=== PATIENT | female | born 1960 | race Caucasian/White ===

== ENCOUNTER 2017-03-02 16:41 | Emergency (ER) | payer MEDICAID, OTHER ==
[~2017-03-02] VITALS: Ht 157.5 cm; Wt 52.2 kg
[~2017-03-02 16:41] MED LIST: DIPHTAB95; LORA2TAB89; METO-462; VALS160T51
[2017-03-02] MEDS ORDERED: SODIUM CHLORIDE 0.9% 1,000 ML IV ONE (16:53)
[2017-03-02] MEDS ORDERED: cloNIDine HCL 0.1 MG TAB PO ONE (17:00)
[2017-03-02 17:34] LABS: Basophils # (auto) 0.1 uL; Basophils % (auto) 0.7 % (0.0-2.0); CONDITION Y; Eosinophils # (auto) 0.3 uL; Hematocrit 39.7 % (36.0-46.0); Hemoglobin 13.2 g/dL (12.2-16.2); Lymphocytes # (auto) 2.1 uL; Lymphocytes % (auto) 23.4 % (10.0-50.0); Mean Corpuscular Hemoglobin 30.6 pg (28.0-32.0); Mean Corpuscular Hgb Conc. 33.1 g/dL (32.0-36.0); Mean Corpuscular Volume 92.3 fL (80.0-100.0); Mean Platelet Volume 8.2 fL (7.4-10.4); Monocytes # (auto) 1.1 uL; Monocytes % (auto) 12.5 % (0.0-12.0); Neutrophils # (auto) 5.5 uL; Neutrophils % (auto) 60.4 % (37.0-80.0); Platelet Count (auto) 284 10^3/uL (140-450); Red Cell Distribution Width 14.1 % (11.6-16.0); White Blood Cell 9.1 10^3/uL (4.4-10.8)
[2017-03-02 18:00] LABS: Albumin 3.8 g/dL (3.4-5.0); BUN/Creatinine Ratio 17.2; Calcium 8.7 mg/dL (8.5-10.1); Potassium 4.1 mmol/L (3.5-5.1)
[2017-03-02 18:03] LABS: Bilirubin, Total 0.4 mg/dL (0.2-1.0)
[2017-03-02 18:17] VITALS: BP 171/80
[2017-03-02 18:23] LABS: Urine RBC None Seen /hpf (0 - 4)
[2017-03-02] MEDS ORDERED: HYDROcodone-ACET 10/325MG TAB PO ONE (18:30)
[2017-03-02 18:38] LABS: Urine Bilirubin Negative (Negative); Urine Blood Negative /uL (Negative); Urine Color Yellow (Yellow); Urine Glucose Normal (Normal); Urine Ketone Negative (Negative); Urine Nitrite Negative (Negative); Urine Squamous Epithelial Cell FEW /hpf (<5); Urine Urobilinogen Normal (Negative)
== END 2017-03-02 19:22 | disposition home or self-care (01) ==
LOC: EDBD 16:41 → ER 16:49
DX: I16.0 Hypertensive urgency (principal); M25.561 Pain in right knee; I10 Essential (primary) hypertension; Z86.73 Personal history of transient ischemic attack (TIA), and cerebral infarction without residual deficits; I25.10 Atherosclerotic heart disease of native coronary artery without angina pectoris; F43.10 Post-traumatic stress disorder, unspecified; I25.2 Old myocardial infarction; Z85.43 Personal history of malignant neoplasm of ovary; F17.210 Nicotine dependence, cigarettes, uncomplicated
CPT/HCPCS: 36415; 80053; 81001; 85025; 93005; 94761; 96360; 99285; J7030

== ENCOUNTER 2018-01-09 09:30 | Inpatient (IN) | payer MEDICAID ==
[~2018-01-09] VITALS: Ht 157.5 cm; Wt 61.8 kg
[2018-01-09 10:09] LABS: Basophils # (auto) 0 uL; Hemoglobin 13.6 g/dL (12.2-16.2); Mean Corpuscular Hemoglobin 29.9 pg (28.0-32.0); Mean Corpuscular Hgb Conc. 33.9 g/dL (32.0-36.0); Platelet Count (auto) 213 10^3/uL (140-450); Red Blood Cells 4.55 10^6/uL (4.0-5.20); Red Cell Distribution Width 14.1 % (11.8-14.3); White Blood Cell 5.6 10^3/uL (4.4-10.8)
[2018-01-09 10:26] LABS: Neutrophils % (auto) 69.2 % (37.0-80.0)
[2018-01-09 10:27] LABS: Lymphocytes % (auto) 15.8 % (10.0-50.0); Monocytes % (auto) 10.3 % (0.0-12.0)
[2018-01-09 10:28] LABS: Basophils % (auto) 0.6 % (0.0-2.0); Eosinophils % (auto) 4.1 % (0.0-7.0)
[2018-01-09 10:29] LABS: Eosinophils # (auto) 0.2 uL; Lymphocytes # (auto) 0.9 uL; Monocytes # (auto) 0.6 uL
[2018-01-09 10:43] LABS: Albumin 3.9 g/dL (3.4-5.0); Anion Gap 13 (5-15); Blood Urea Nitrogen 10 mg/dL (7-18); Carbon Dioxide 22 mmol/L (21-32); Chloride 85 mmol/L (98-107); Glucose 102 mg/dL (74-106); Magnesium 1.8 mg/dL (1.6-2.6); Potassium 3.4 mmol/L (3.5-5.1); Sodium 120 mmol/L (136-145)
[2018-01-09 10:45] LABS: Alanine Aminotransferase 20 U/L (13-56); Aspartate Aminotransferase 22 U/L (15-37); BUN/Creatinine Ratio 11.4; GFR African American 85 mL/min; GFR Non-African American 71 mL/min
[2018-01-09 10:50] LABS: Alkaline Phosphatase 96 U/L (45-117); Bilirubin, Total 0.5 mg/dL (0.2-1.0); Total Protein 8.2 g/dL (6.4-8.2)
[2018-01-09] MEDS ORDERED: SODIUM CHLORIDE 0.9% 1,000 ML IV ONE (13:03)
[2018-01-09] MEDS ORDERED: ASPirin 81 mg TAB PO ONE (13:15)
[2018-01-09] MEDS ORDERED: HYDROcodone-ACET 5/325MG TAB PO ONE (15:45)
[2018-01-09] MEDS ORDERED: ONDANSETRON HCL 4 MG/2 ML VIAL IV ONE (15:45)
[2018-01-09] MEDS ORDERED: MORPHINE SULFATE 8mg/ml INJ SDV IV PRN (16:30)
[2018-01-09] MEDS ORDERED: POTASSIUM CHLORIDE 8 MEQ TAB PO ONE (16:30)
[2018-01-09] MEDS ORDERED: MORPHINE SULF INJ 2 MG/ML SYRINGE 1ML IV PRN (16:30)
[2018-01-09] MEDS ORDERED: LORazepam 2MG/ML-1ML VIAL IV PRN (16:30)
[2018-01-09] MEDS ORDERED: ALUM & MAG HYDROX-SIMETH LIQ(MAALOX) 30 ML PO ONE (16:30)
[2018-01-09] MEDS ORDERED: cloNIDine HCL 0.1 MG TAB PO PRN (16:30)
[2018-01-09] MEDS ORDERED: hydrOXYzine 25 MG TAB or CAP PO PRN (16:30)
[2018-01-09] MEDS ORDERED: LORazepam 0.5 MG TAB PO PRN (16:30)
[2018-01-09] MEDS ORDERED: NITROGLYCERIN 0.4 MG SL TAB SL PRN ×2 (16:30)
[2018-01-09] MEDS ORDERED: ZOLPIDEM TARTRATE 5 MG TAB PO PRN (16:30)
[2018-01-09] MEDS ORDERED: ACETAMINOPHEN 325 MG TAB PO PRN (16:30)
[2018-01-09] MEDS: ONDANSETRON HCL 4 MG/2 ML VIAL IV PRN ×2 (17:23→22:32)
[2018-01-09 18:12] VITALS: BP 158/94
[2018-01-09] MEDS: LORazepam 0.5 MG TAB PO PRN (18:40)
[2018-01-09] MEDS: HCTZ 25 MG TAB PO SCH (18:41)
[2018-01-09 22:00] VITALS: BP 140/83
[2018-01-09] MEDS: METOPROLOL TARTRATE 50 MG TAB PO SCH (22:00)
[2018-01-09] MEDS: HYDROcodone-ACET 5/325MG TAB PO PRN (22:32)
[2018-01-09] MEDS: SODIUM CHLOR 0.9% PF (SALINE LOCK) 10ML VIAL/SYR IV SCH (22:45)
[2018-01-09] MEDS: POTASSIUM CHLORIDE 8 MEQ TAB PO SCH (22:46)
[2018-01-09] MEDS: ATORVASTATIN 20 MG TAB PO SCH (22:46)
[2018-01-09] MEDS: ENALAPRIL MALEATE 2.5 MG TAB PO SCH (22:48)
[2018-01-10] MEDS: ONDANSETRON HCL 4 MG/2 ML VIAL IV PRN ×4 (02:25→20:20)
[2018-01-10] MEDS: HYDROcodone-ACET 5/325MG TAB PO PRN ×6 (02:26→21:44)
[2018-01-10] MEDS: LORazepam 0.5 MG TAB PO PRN ×3 (02:26→20:37)
[2018-01-10] MEDS ORDERED: [UNRECOGNIZED DRUG - CODE] PO (04:26)
[2018-01-10] MEDS ORDERED: HYDR-4069 PO (04:26)
[2018-01-10] MEDS ORDERED: AMLO5TAB2 PO (04:27)
[2018-01-10] MEDS ORDERED: HYDR-2551 PO (04:28)
[2018-01-10] MEDS ORDERED: HYDR50TA69 PO (04:31)
[2018-01-10 05:55] VITALS: BP 145/85
[2018-01-10] MEDS: SODIUM CHLOR 0.9% PF (SALINE LOCK) 10ML VIAL/SYR IV SCH ×3 (06:00→21:48)
[2018-01-10 07:17] LABS: Basophils # (auto) 0 uL; Basophils % (auto) 0.6 % (0.0-2.0); Eosinophils # (auto) 0.2 uL; Eosinophils % (auto) 5.5 % (0.0-7.0); Hematocrit 38.7 % (36.0-46.0); Hemoglobin 13.4 g/dL (12.2-16.2); Lymphocytes # (auto) 1.2 uL; Lymphocytes % (auto) 36.5 % (10.0-50.0); Mean Corpuscular Hemoglobin 30.3 pg (28.0-32.0); Mean Corpuscular Hgb Conc. 34.7 g/dL (32.0-36.0); Mean Corpuscular Volume 87.4 fL (80.0-100.0); Monocytes # (auto) 0.4 uL; Monocytes % (auto) 12.8 % (0.0-12.0); Neutrophils # (auto) 1.4 uL; Neutrophils % (auto) 44.6 % (37.0-80.0); Nucleated Red Blood Cells % 0.1 %; Platelet Count (auto) 157 10^3/uL (140-450); Red Blood Cells 4.43 10^6/uL (4.0-5.20); Red Cell Distribution Width 13.8 % (11.8-14.3); White Blood Cell 3.2 10^3/uL (4.4-10.8)
[2018-01-10 07:46] LABS: Alanine Aminotransferase 17 U/L (13-56); Albumin 3.5 g/dL (3.4-5.0); Alkaline Phosphatase 87 U/L (45-117); Anion Gap 12 (5-15); Aspartate Aminotransferase 17 U/L (15-37); BUN/Creatinine Ratio 12.2; Bilirubin, Total 0.4 mg/dL (0.2-1.0); Blood Urea Nitrogen 9 mg/dL (7-18); Calcium 8.1 mg/dL (8.5-10.1); Carbon Dioxide 22 mmol/L (21-32); Chloride 85 mmol/L (98-107); Cholesterol 152 mg/dL (< 200); GFR African American 104 mL/min; GFR Non-African American 86 mL/min; Glucose 154 mg/dL (74-106); HDL Cholesterol 63 mg/dL (40-59); LDL Cholesterol 84 mg/dL (< 100); Magnesium 1.9 mg/dL (1.6-2.6); Potassium 3.3 mmol/L (3.5-5.1); Total Protein 7.2 g/dL (6.4-8.2); Triglycerides 76 mg/dL (< 150)
[2018-01-10 08:11] LABS: Sodium 119 mmol/L (136-145)
[2018-01-10 09:00] VITALS: BP 143/79
[2018-01-10] MEDS: POTASSIUM CHLORIDE 8 MEQ TAB PO SCH ×2 (09:44→21:28)
[2018-01-10] MEDS: METOPROLOL TARTRATE 50 MG TAB PO SCH ×2 (09:47→21:45)
[2018-01-10] MEDS: DOCUSATE SOD 100 MG CAP PO SCH (09:47)
[2018-01-10] MEDS: ASPirin 81 mg TAB PO SCH (09:48)
[2018-01-10] MEDS: HCTZ 25 MG TAB PO SCH (09:48)
[2018-01-10] MEDS: ENALAPRIL MALEATE 2.5 MG TAB PO SCH ×2 (09:49→21:27)
[2018-01-10] MEDS: CLOPIDOGREL BISULFATE 75 MG TAB PO SCH (09:49)
[2018-01-10] MEDS ORDERED: TEMAZEPAM 15 MG CAP PO ONE ×2 (10:45→21:00)
[2018-01-10] MEDS ORDERED: SODIUM CHL 3% 500 ML BAG IV SCH ×2 (11:00→12:00)
[2018-01-10] MEDS ORDERED: POTASSIUM CHL 20 Meq TABLET PO ONE (11:00)
[2018-01-10] MEDS ORDERED: SODIUM CHL 3% IV ONE (12:00)
[2018-01-10 13:00] VITALS: BP 144/81
[2018-01-10 16:50] VITALS: BP 127/79
[2018-01-10] MEDS: ATORVASTATIN 20 MG TAB PO SCH (21:28)
[2018-01-10 22:00] VITALS: BP 147/78
[2018-01-11] MEDS: HYDROcodone-ACET 5/325MG TAB PO PRN ×6 (00:31→21:42)
[2018-01-11] MEDS: ONDANSETRON HCL 4 MG/2 ML VIAL IV PRN ×5 (00:32→17:25)
[2018-01-11 05:00] VITALS: BP 134/77
[2018-01-11] MEDS: LORazepam 0.5 MG TAB PO PRN ×3 (05:18→21:01)
[2018-01-11] MEDS: SODIUM CHLOR 0.9% PF (SALINE LOCK) 10ML VIAL/SYR IV SCH ×3 (05:35→20:59)
[2018-01-11 06:44] LABS: Basophils # (auto) 0 uL; Basophils % (auto) 0.3 % (0.0-2.0); Eosinophils # (auto) 0.2 uL; Eosinophils % (auto) 4.5 % (0.0-7.0); Hematocrit 38.6 % (36.0-46.0); Lymphocytes % (auto) 28.1 % (10.0-50.0); Mean Corpuscular Hemoglobin 29.9 pg (28.0-32.0); Mean Corpuscular Hgb Conc. 33.6 g/dL (32.0-36.0); Mean Corpuscular Volume 88.9 fL (80.0-100.0); Monocytes # (auto) 0.6 uL; Monocytes % (auto) 16.4 % (0.0-12.0); Neutrophils # (auto) 1.8 uL; Neutrophils % (auto) 50.7 % (37.0-80.0); Platelet Count (auto) 158 10^3/uL (140-450); Red Blood Cells 4.34 10^6/uL (4.0-5.20); Red Cell Distribution Width 14.2 % (11.8-14.3); White Blood Cell 3.6 10^3/uL (4.4-10.8)
[2018-01-11 06:59] LABS: BUN/Creatinine Ratio 6.2; Calcium 8.1 mg/dL (8.5-10.1); Potassium 3.8 mmol/L (3.5-5.1)
[2018-01-11 07:53] VITALS: BP 131/77
[2018-01-11] MEDS: DOCUSATE SOD 100 MG CAP PO SCH (09:19)
[2018-01-11] MEDS: POTASSIUM CHLORIDE 8 MEQ TAB PO SCH ×2 (09:19→21:00)
[2018-01-11] MEDS: CLOPIDOGREL BISULFATE 75 MG TAB PO SCH (09:20)
[2018-01-11] MEDS: ENALAPRIL MALEATE 2.5 MG TAB PO SCH ×2 (09:21→21:00)
[2018-01-11] MEDS: ASPirin 81 mg TAB PO SCH (09:21)
[2018-01-11] MEDS: METOPROLOL TARTRATE 50 MG TAB PO SCH ×2 (09:21→21:00)
[2018-01-11] MEDS ORDERED: SODIUM CHL 3% 500 ML IV ONE (09:30)
[2018-01-11] MEDS ORDERED: diphenhdrAMINE HCL 25 MG CAP PO ONE (11:38)
[2018-01-11] MEDS: diphenhdrAMINE HCL 25 MG CAP PO PRN (11:45)
[2018-01-11 12:20] VITALS: BP 152/79
[2018-01-11 12:31] LABS: INR 0.97 (0.9-1.15); Prothrombin Time 10.4 sec (9.27-12.13)
[2018-01-11 16:51] VITALS: BP 144/77
[2018-01-11 18:33] LABS: Urine Bacteria FEW /hpf (None Seen); Urine Blood Negative /uL (Negative); Urine Specific Gravity 1.011 (1.001-1.035); Urine WBC <1 /hpf (0 - 5)
[2018-01-11] MEDS: ATORVASTATIN 20 MG TAB PO SCH (21:00)
[2018-01-11 22:00] VITALS: BP 124/74
[2018-01-11] MEDS ORDERED: TEMAZEPAM 15 MG CAP PO ONE (23:15)
[2018-01-12] MEDS: ONDANSETRON HCL 4 MG/2 ML VIAL IV PRN ×4 (03:19→20:59)
[2018-01-12] MEDS: HYDROcodone-ACET 5/325MG TAB PO PRN ×5 (03:20→23:14)
[2018-01-12] MEDS: diphenhdrAMINE HCL 25 MG CAP PO PRN ×4 (03:37→23:14)
[2018-01-12 05:00] VITALS: BP 158/82
[2018-01-12 05:37] LABS: Basophils # (auto) 0 uL; Basophils % (auto) 0.5 % (0.0-2.0); Eosinophils # (auto) 0.2 uL; Eosinophils % (auto) 4.5 % (0.0-7.0); Hematocrit 38.9 % (36.0-46.0); Hemoglobin 12.8 g/dL (12.2-16.2); Lymphocytes # (auto) 1.1 uL; Lymphocytes % (auto) 31.3 % (10.0-50.0); Mean Corpuscular Hemoglobin 29.6 pg (28.0-32.0); Mean Corpuscular Volume 89.8 fL (80.0-100.0); Monocytes # (auto) 0.5 uL; Monocytes % (auto) 14.2 % (0.0-12.0); Neutrophils # (auto) 1.7 uL; Neutrophils % (auto) 49.5 % (37.0-80.0); Nucleated Red Blood Cells % 0.1 %; Platelet Count (auto) 146 10^3/uL (140-450); Red Blood Cells 4.33 10^6/uL (4.0-5.20); Red Cell Distribution Width 14.3 % (11.8-14.3); White Blood Cell 3.5 10^3/uL (4.4-10.8)
[2018-01-12] MEDS: SODIUM CHLOR 0.9% PF (SALINE LOCK) 10ML VIAL/SYR IV SCH ×3 (06:00→21:00)
[2018-01-12 06:12] LABS: Albumin 3.2 g/dL (3.4-5.0); BUN/Creatinine Ratio 10.3; Calcium 8.3 mg/dL (8.5-10.1); Potassium 4.5 mmol/L (3.5-5.1)
[2018-01-12 06:14] LABS: Bilirubin, Total 0.5 mg/dL (0.2-1.0)
[2018-01-12] MEDS: DOCUSATE SOD 100 MG CAP PO SCH (08:26)
[2018-01-12] MEDS: ENALAPRIL MALEATE 2.5 MG TAB PO SCH ×2 (08:27→21:00)
[2018-01-12] MEDS: ASPirin 81 mg TAB PO SCH (08:27)
[2018-01-12] MEDS: POTASSIUM CHLORIDE 8 MEQ TAB PO SCH (08:27)
[2018-01-12] MEDS: METOPROLOL TARTRATE 50 MG TAB PO SCH ×2 (08:28→21:00)
[2018-01-12 08:56] VITALS: BP 143/83
[2018-01-12] MEDS: CLOPIDOGREL BISULFATE 75 MG TAB PO SCH (10:00)
[2018-01-12] MEDS: LORazepam 0.5 MG TAB PO PRN ×2 (11:00→20:59)
[2018-01-12] MEDS ORDERED: BOOST PLUS 8 ounce PO SCH ×2 (12:00→18:00)
[2018-01-12 17:29] VITALS: BP 159/92
[2018-01-12 20:00] VITALS: BP 150/80
[2018-01-12] MEDS: ATORVASTATIN 20 MG TAB PO SCH (21:00)
[2018-01-13] MEDS ORDERED: TEMAZEPAM 15 MG CAP PO ONE (01:00)
[2018-01-13] MEDS: HYDROcodone-ACET 5/325MG TAB PO PRN ×2 (04:22→08:45)
[2018-01-13 04:57] VITALS: BP 126/59
[2018-01-13] MEDS: ONDANSETRON HCL 4 MG/2 ML VIAL IV PRN (05:25)
[2018-01-13 07:23] LABS: Basophils # (auto) 0 uL; Basophils % (auto) 0.7 % (0.0-2.0); Eosinophils # (auto) 0.2 uL; Eosinophils % (auto) 4.7 % (0.0-7.0); Hematocrit 39.3 % (36.0-46.0); Hemoglobin 13.1 g/dL (12.2-16.2); Lymphocytes # (auto) 1.2 uL; Lymphocytes % (auto) 31.7 % (10.0-50.0); Mean Corpuscular Hgb Conc. 33.3 g/dL (32.0-36.0); Mean Corpuscular Volume 89.9 fL (80.0-100.0); Monocytes # (auto) 0.6 uL; Monocytes % (auto) 14.1 % (0.0-12.0); Neutrophils # (auto) 1.9 uL; Neutrophils % (auto) 48.8 % (37.0-80.0); Nucleated Red Blood Cells % 0.1 %; Platelet Count (auto) 173 10^3/uL (140-450); Red Blood Cells 4.38 10^6/uL (4.0-5.20); Red Cell Distribution Width 14.2 % (11.8-14.3); White Blood Cell 3.9 10^3/uL (4.4-10.8)
[2018-01-13 07:52] LABS: Albumin 3.8 g/dL (3.4-5.0); BUN/Creatinine Ratio 14.7; Bilirubin, Total 0.4 mg/dL (0.2-1.0); Calcium 8.8 mg/dL (8.5-10.1); Potassium 4.7 mmol/L (3.5-5.1); Total Protein 7.6 g/dL (6.4-8.2)
[2018-01-13] MEDS: LORazepam 0.5 MG TAB PO PRN (08:42)
[2018-01-13 09:44] VITALS: BP 146/68
== END 2018-01-13 10:30 | disposition left against medical advice (07) | DRG 424 ==
LOC: EDBD 09:30 → ER 09:36 → TELE 09:37 → TELE-EAST 18:08
PROVIDERS: ADMIT Internal Medicine; ATTEND Internal Medicine
PROC: 0GBG3ZX Excision of Left Thyroid Gland Lobe, Percutaneous Approach, Diagnostic (ICD-10-PCS; principal; 2018-01-12)
DX: E04.1 Nontoxic single thyroid nodule (principal); J84.10 Pulmonary fibrosis, unspecified; E44.0 Moderate protein-calorie malnutrition; I13.0 Hypertensive heart and chronic kidney disease with heart failure and stage 1 through stage 4 chronic kidney disease, or unspecified chronic kidney disease; I50.42 Chronic combined systolic (congestive) and diastolic (congestive) heart failure; E87.1 Hypo-osmolality and hyponatremia; R07.89 Other chest pain; M54.9 Dorsalgia, unspecified; E87.6 Hypokalemia; N18.2 Chronic kidney disease, stage 2 (mild); F17.210 Nicotine dependence, cigarettes, uncomplicated; I05.8 Other rheumatic mitral valve diseases; F41.9 Anxiety disorder, unspecified; G40.909 Epilepsy, unspecified, not intractable, without status epilepticus; Z53.21 Procedure and treatment not carried out due to patient leaving prior to being seen by health care provider; G89.29 Other chronic pain; I25.10 Atherosclerotic heart disease of native coronary artery without angina pectoris; Z82.49 Family history of ischemic heart disease and other diseases of the circulatory system; Z86.73 Personal history of transient ischemic attack (TIA), and cerebral infarction without residual deficits; Z90.710 Acquired absence of both cervix and uterus; Z85.43 Personal history of malignant neoplasm of ovary; I25.2 Old myocardial infarction; Z68.24 Body mass index [BMI] 24.0-24.9, adult; Z88.0 Allergy status to penicillin; Z88.8 Allergy status to other drugs, medicaments and biological substances
CPT/HCPCS: 10022; 36415; 71046; 71250; 73630; 76536; 76942; 80048; 80053; 80061; 81001; 82088; 82533; 83735; 83880; 84244; 84300; 84443; 84484; 85025; 85610; 88172; 93005; 93306; 96361; 96374; J2405

== ENCOUNTER 2018-04-29 22:19 | Inpatient (IN) | payer MEDICAID ==
[~2018-04-29] VITALS: Ht 157.5 cm; Wt 57.3 kg
[~2018-04-29 22:19] MED LIST changes: +AMLO5TAB13 PO; +HYDR-2551 PO; +HYDR-4069 PO; +HYDR50TA69 PO; +[UNRECOGNIZED DRUG - CODE] PO
[2018-04-29 23:08] LABS: Basophils # (auto) 0 uL; Basophils % (auto) 0.4 % (0.0-2.0); Eosinophils # (auto) 0.4 uL; Eosinophils % (auto) 4.6 % (0.0-7.0); Hematocrit 37.9 % (36.0-46.0); Hemoglobin 12.3 g/dL (12.2-16.2); Lymphocytes # (auto) 1.5 uL; Lymphocytes % (auto) 18.6 % (10.0-50.0); Mean Corpuscular Hemoglobin 28.4 pg (28.0-32.0); Mean Corpuscular Hgb Conc. 32.5 g/dL (32.0-36.0); Mean Corpuscular Volume 87.2 fL (80.0-100.0); Monocytes # (auto) 0.9 uL; Monocytes % (auto) 10.8 % (0.0-12.0); Neutrophils # (auto) 5.4 uL; Neutrophils % (auto) 65.6 % (37.0-80.0); Platelet Count (auto) 269 10^3/uL (140-450); Red Blood Cells 4.34 10^6/uL (4.0-5.20); Red Cell Distribution Width 15.5 % (11.8-14.3); White Blood Cell 8.2 10^3/uL (4.4-10.8)
[2018-04-29 23:31] LABS: Albumin 3.7 g/dL (3.4-5.0); BUN/Creatinine Ratio 23.2; Calcium 8.7 mg/dL (8.5-10.1); Potassium 4.2 mmol/L (3.5-5.1)
[2018-04-29 23:34] LABS: Bilirubin, Total 0.3 mg/dL (0.2-1.0); Total Protein 7.4 g/dL (6.4-8.2)
[2018-04-30] MEDS ORDERED: LORazepam 2MG/ML-1ML VIAL IV ONE (01:45)
[2018-04-30] MEDS ORDERED: lamoTRIgine 100 MG TAB PO ONE (03:10)
[2018-04-30] MEDS ORDERED: SODIUM CHLORIDE 0.9% 2,000 ML IV ONE (03:45)
[2018-04-30] MEDS ORDERED: TEMAZEPAM 15 MG CAP PO PRN (05:30)
[2018-04-30] MEDS ORDERED: LORazepam 2MG/ML-1ML VIAL IV PRN (05:30)
[2018-04-30] MEDS ORDERED: ACETAMINOPHEN 325 MG TAB PO PRN (05:30)
[2018-04-30] MEDS ORDERED: SODIUM CHLORIDE 0.9% 1,000 ML IV SCH (05:30)
[2018-04-30] MEDS ORDERED: ONDANSETRON HCL 4 MG/2 ML VIAL IV PRN (05:30)
[2018-04-30 06:49] LABS: Urine Bacteria NONE SEEN /hpf (None Seen); Urine Blood Negative /uL (Negative); Urine Specific Gravity 1.007 (1.001-1.035); Urine WBC 1 /hpf (0 - 5)
[2018-04-30 07:00] LABS: Alcohol, Urine < 3.0 mg/dL (0-5); Amphetamine Screen, Urine NEGATIVE (NEGATIVE); Barbiturate Scree,Urine NEGATIVE (NEGATIVE); Benzodiazephine Screen, Urine NEGATIVE (NEGATIVE); Cannabinoid Screen, Urine NEGATIVE (NEGATIVE); Cocaine Screen, Urine NEGATIVE (NEGATIVE); Opiate Scree,Urine NEGATIVE (NEGATIVE); Phencyclidine Screen, Urine NEGATIVE (NEGATIVE)
[2018-04-30 09:37] VITALS: BP 134/74
[2018-04-30] MEDS ORDERED: VALSARTAN 80 MG TAB PO SCH (10:00)
[2018-04-30] MEDS ORDERED: HCTZ 25 MG TAB PO SCH (10:00)
[2018-04-30] MEDS: METOPROLOL TARTRATE 50 MG TAB PO SCH ×2 (10:00→22:36)
[2018-04-30] MEDS: HYDROcodone-ACET 5/325MG TAB PO PRN ×3 (10:51→19:49)
[2018-04-30] MEDS: LOSARTAN POTASSIUM 50 MG TAB PO SCH (10:52)
[2018-04-30] MEDS: FAMOTIDINE 20 MG TAB PO SCH ×2 (10:53→21:28)
[2018-04-30] MEDS: amLODIPine BESYLATE 5 MG TAB PO SCH (10:53)
[2018-04-30] MEDS ORDERED: LORazepam 0.5 MG TAB PO SCH (12:13)
[2018-04-30 13:00] VITALS: BP 128/74
[2018-04-30] MEDS: SODIUM CHLORIDE 0.9% 1,000 ML IV SCH ×2 (14:45→22:39)
[2018-04-30 16:32] VITALS: BP 115/69
[2018-04-30 20:00] VITALS: BP 126/73
[2018-04-30] MEDS ORDERED: LORazepam 0.5 MG TAB PO PRN (20:15)
[2018-04-30] MEDS: LORazepam 0.5 MG TAB PO SCH (21:28)
[2018-04-30 22:00] VITALS: BP 126/73
[2018-05-01] MEDS: HYDROcodone-ACET 5/325MG TAB PO PRN ×6 (02:02→21:39)
[2018-05-01 04:58] VITALS: BP 140/75
[2018-05-01] MEDS: LORazepam 0.5 MG TAB PO SCH ×3 (05:15→21:39)
[2018-05-01 06:03] LABS: Basophils # (auto) 0.1 uL; Basophils % (auto) 0.8 % (0.0-2.0); Eosinophils # (auto) 0.4 uL; Eosinophils % (auto) 6.8 % (0.0-7.0); Hematocrit 40.9 % (36.0-46.0); Hemoglobin 13.5 g/dL (12.2-16.2); Lymphocytes # (auto) 2.1 uL; Lymphocytes % (auto) 34.8 % (10.0-50.0); Mean Corpuscular Hemoglobin 28.9 pg (28.0-32.0); Mean Corpuscular Hgb Conc. 32.9 g/dL (32.0-36.0); Monocytes # (auto) 0.6 uL; Monocytes % (auto) 10.6 % (0.0-12.0); Neutrophils # (auto) 2.9 uL; Platelet Count (auto) 272 10^3/uL (140-450); Red Blood Cells 4.65 10^6/uL (4.0-5.20); Red Cell Distribution Width 15.4 % (11.8-14.3); White Blood Cell 6.1 10^3/uL (4.4-10.8)
[2018-05-01 06:42] LABS: Anion Gap 9 (5-15); BUN/Creatinine Ratio 18.3; Blood Urea Nitrogen 13 mg/dL (7-18); Calcium 8.8 mg/dL (8.5-10.1); Carbon Dioxide 22 mmol/L (21-32); Chloride 95 mmol/L (98-107); Cholesterol 203 mg/dL (< 200); GFR African American 110 mL/min; GFR Non-African American 91 mL/min; Glucose 70 mg/dL (74-106); HDL Cholesterol 102 mg/dL (40-59); LDL Cholesterol 96 mg/dL (< 100); Magnesium 2.3 mg/dL (1.6-2.6); Potassium 4.3 mmol/L (3.5-5.1); Sodium 126 mmol/L (136-145); Triglycerides 73 mg/dL (< 150)
[2018-05-01 09:00] VITALS: BP 145/100
[2018-05-01] MEDS: METOPROLOL TARTRATE 50 MG TAB PO SCH ×2 (10:07→11:07)
[2018-05-01] MEDS: FAMOTIDINE 20 MG TAB PO SCH ×2 (10:08→21:39)
[2018-05-01] MEDS: LOSARTAN POTASSIUM 50 MG TAB PO SCH (10:08)
[2018-05-01] MEDS: amLODIPine BESYLATE 5 MG TAB PO SCH (10:09)
[2018-05-01 13:00] VITALS: BP 155/84
[2018-05-01 17:00] VITALS: BP 156/91
[2018-05-01 21:45] VITALS: BP 132/79
[2018-05-02] MEDS: SODIUM CHLORIDE 0.9% 1,000 ML IV SCH ×3 (00:05→21:58)
[2018-05-02] MEDS: HYDROcodone-ACET 5/325MG TAB PO PRN ×6 (02:12→23:44)
[2018-05-02] MEDS: LORazepam 0.5 MG TAB PO SCH ×3 (05:29→21:57)
[2018-05-02 05:43] VITALS: BP 108/68
[2018-05-02 07:18] LABS: Basophils # (auto) 0 uL; Basophils % (auto) 0.8 % (0.0-2.0); Eosinophils # (auto) 0.3 uL; Eosinophils % (auto) 6.6 % (0.0-7.0); Hematocrit 39.4 % (36.0-46.0); Hemoglobin 12.8 g/dL (12.2-16.2); Lymphocytes # (auto) 1.6 uL; Lymphocytes % (auto) 35.7 % (10.0-50.0); Mean Corpuscular Hemoglobin 28.3 pg (28.0-32.0); Mean Corpuscular Hgb Conc. 32.5 g/dL (32.0-36.0); Mean Corpuscular Volume 86.9 fL (80.0-100.0); Monocytes # (auto) 0.6 uL; Monocytes % (auto) 12.1 % (0.0-12.0); Neutrophils # (auto) 2.1 uL; Neutrophils % (auto) 44.8 % (37.0-80.0); Nucleated Red Blood Cells % 0.1 %; Platelet Count (auto) 232 10^3/uL (140-450); Red Blood Cells 4.53 10^6/uL (4.0-5.20); Red Cell Distribution Width 15.3 % (11.8-14.3); White Blood Cell 4.6 10^3/uL (4.4-10.8)
[2018-05-02 07:30] LABS: BUN/Creatinine Ratio 22.6; Calcium 8.7 mg/dL (8.5-10.1); Potassium 4.1 mmol/L (3.5-5.1)
[2018-05-02 09:00] VITALS: BP 162/88
[2018-05-02] MEDS: LOSARTAN POTASSIUM 50 MG TAB PO SCH (09:40)
[2018-05-02] MEDS: METOPROLOL TARTRATE 50 MG TAB PO SCH ×2 (09:41→21:57)
[2018-05-02] MEDS: FAMOTIDINE 20 MG TAB PO SCH ×2 (09:42→21:57)
[2018-05-02] MEDS: amLODIPine BESYLATE 5 MG TAB PO SCH (09:42)
[2018-05-02 13:00] VITALS: BP 155/90
[2018-05-02 17:00] VITALS: BP 139/78
[2018-05-02 22:00] VITALS: BP 157/88
[2018-05-03] MEDS: HYDROcodone-ACET 5/325MG TAB PO PRN ×4 (03:29→16:18)
[2018-05-03 05:11] VITALS: BP 109/56
[2018-05-03] MEDS: LORazepam 0.5 MG TAB PO SCH ×2 (05:23→14:00)
[2018-05-03 06:48] LABS: Basophils # (auto) 0 uL; Basophils % (auto) 0.6 % (0.0-2.0); Eosinophils # (auto) 0.2 uL; Eosinophils % (auto) 4.1 % (0.0-7.0); Hemoglobin 12.7 g/dL (12.2-16.2); Lymphocytes # (auto) 1.3 uL; Lymphocytes % (auto) 23.1 % (10.0-50.0); Mean Corpuscular Hemoglobin 29.5 pg (28.0-32.0); Mean Corpuscular Hgb Conc. 33.4 g/dL (32.0-36.0); Mean Corpuscular Volume 88.4 fL (80.0-100.0); Monocytes # (auto) 0.6 uL; Monocytes % (auto) 11.4 % (0.0-12.0); Neutrophils # (auto) 3.4 uL; Neutrophils % (auto) 60.8 % (37.0-80.0); Platelet Count (auto) 209 10^3/uL (140-450); Red Cell Distribution Width 15.1 % (11.8-14.3); White Blood Cell 5.7 10^3/uL (4.4-10.8)
[2018-05-03 07:09] LABS: Calcium 8.7 mg/dL (8.5-10.1); Potassium 4.1 mmol/L (3.5-5.1)
[2018-05-03 09:00] VITALS: BP 109/74
[2018-05-03] MEDS: FAMOTIDINE 20 MG TAB PO SCH (10:45)
[2018-05-03] MEDS: amLODIPine BESYLATE 5 MG TAB PO SCH (10:48)
[2018-05-03] MEDS: METOPROLOL TARTRATE 50 MG TAB PO SCH (10:49)
[2018-05-03] MEDS: LOSARTAN POTASSIUM 50 MG TAB PO SCH (10:49)
[2018-05-03] MEDS ORDERED: LORazepam 0.5 MG TAB PO ONE (11:15)
[2018-05-03] MEDS ORDERED: FLUO10CA15 PO (12:15)
[2018-05-03 13:23] VITALS: BP 120/76
[2018-05-03 17:01] VITALS: BP 150/88
== END 2018-05-03 17:45 | disposition home health service (06) | DRG 53 ==
LOC: EDBD 22:19 → ER 22:34 → OVERFLOW 22:35 → WEST WING 04-30 07:55
PROVIDERS: ADMIT Nurse Practitioner; ATTEND Internal Medicine
DX: G40.409 Other generalized epilepsy and epileptic syndromes, not intractable, without status epilepticus (principal); I13.0 Hypertensive heart and chronic kidney disease with heart failure and stage 1 through stage 4 chronic kidney disease, or unspecified chronic kidney disease; E87.1 Hypo-osmolality and hyponatremia; I50.9 Heart failure, unspecified; F15.90 Other stimulant use, unspecified, uncomplicated; F17.210 Nicotine dependence, cigarettes, uncomplicated; G89.4 Chronic pain syndrome; I25.10 Atherosclerotic heart disease of native coronary artery without angina pectoris; F41.9 Anxiety disorder, unspecified; F43.10 Post-traumatic stress disorder, unspecified; R07.89 Other chest pain; N18.9 Chronic kidney disease, unspecified; I25.2 Old myocardial infarction; Z82.49 Family history of ischemic heart disease and other diseases of the circulatory system; Z83.3 Family history of diabetes mellitus; Z85.43 Personal history of malignant neoplasm of ovary; Z86.73 Personal history of transient ischemic attack (TIA), and cerebral infarction without residual deficits; Z91.19 Patient's noncompliance with other medical treatment and regimen; Z90.710 Acquired absence of both cervix and uterus; Z90.49 Acquired absence of other specified parts of digestive tract; Z88.0 Allergy status to penicillin; Z88.8 Allergy status to other drugs, medicaments and biological substances
CPT/HCPCS: 36415; 70450; 73070; 73501; 73560; 80048; 80053; 80061; 80307; 81001; 83735; 83880; 84484; 85025; 85379; 93005; 93926; 95819; 96361; 96374; 99291; A6257; J2405

== ENCOUNTER 2018-10-03 10:57 | Inpatient (IN) | payer MEDICAID, OTHER ==
[~2018-10-03] VITALS: Ht 157.5 cm; Wt 62.3 kg
[~2018-10-03 10:57] MED LIST changes: +FLUO10CA15 PO; -HYDR-2551 PO
[2018-10-03] MEDS ORDERED: methylPREDNISolone SOD SUCC 125 MG/2 ML VL IV ONE (11:45)
[2018-10-03] MEDS ORDERED: ONDANSETRON HCL 4 MG/2 ML VIAL IV ONE ×2 (11:45→16:00)
[2018-10-03] MEDS ORDERED: cefTRIAXone 1GM/50ML D5W 50 ML IV ONE (11:45)
[2018-10-03 12:08] LABS: Basophils # (auto) 0 uL; Basophils % (auto) 0.3 % (0.0-2.0); Eosinophils # (auto) 0 uL; Eosinophils % (auto) 0.2 % (0.0-7.0); Hematocrit 35.1 % (36.0-46.0); Hemoglobin 11.8 g/dL (12.2-16.2); Lymphocytes % (auto) 10.4 % (10.0-50.0); Mean Corpuscular Hemoglobin 29.2 pg (28.0-32.0); Mean Corpuscular Hgb Conc. 33.7 g/dL (32.0-36.0); Mean Corpuscular Volume 86.8 fL (80.0-100.0); Monocytes # (auto) 1.3 uL; Monocytes % (auto) 14.2 % (0.0-12.0); Neutrophils # (auto) 6.9 uL; Neutrophils % (auto) 74.9 % (37.0-80.0); Platelet Count (auto) 187 10^3/uL (140-450); Red Blood Cells 4.05 10^6/uL (4.0-5.20); Red Cell Distribution Width 14.3 % (11.8-14.3); White Blood Cell 9.2 10^3/uL (4.4-10.8)
[2018-10-03 12:13] LABS: Chloride 94 mmol/L (98-107); Potassium 3.6 mmol/L (3.5-5.1); Sodium 124 mmol/L (136-145)
[2018-10-03] MEDS ORDERED: ONDANSETRON ODT 4 MG TAB PO ONE (12:15)
[2018-10-03] MEDS ORDERED: KETOROLAC TROMETH 60MG/2ML VIAL IM ONE (12:15)
[2018-10-03 12:24] LABS: Alanine Aminotransferase 27 U/L (13-56); Albumin 3.2 g/dL (3.4-5.0); Alkaline Phosphatase 92 U/L (45-117); Anion Gap 9 (5-15); Aspartate Aminotransferase 44 U/L (15-37); BUN/Creatinine Ratio 14.9; Bilirubin, Total 0.7 mg/dL (0.2-1.0); Blood Urea Nitrogen 7 mg/dL (7-18); Calcium 8.2 mg/dL (8.5-10.1); Carbon Dioxide 21 mmol/L (21-32); GFR African American 176 mL/min; GFR Non-African American 146 mL/min; Glucose 100 mg/dL (74-106)
[2018-10-03] MEDS ORDERED: cefTRIAXone SOD 1,000 MG VL ONE (13:15)
[2018-10-03] MEDS ORDERED: MORPHINE SULFATE 4 MG/ML SYR/VIAL ONE (15:56)
[2018-10-03] MEDS ORDERED: MORPHINE SULFATE 4 MG/ML SYR/VIAL IV ONE (16:00)
[2018-10-03] MEDS ORDERED: NITROGLYCERIN 0.4 MG SL TAB SL PRN (17:45)
[2018-10-03] MEDS: NITROGLYCERIN 0.4MG/HR TOPICAL PATCH TD SCH (17:45)
[2018-10-03] MEDS ORDERED: MORPHINE SULFATE 4 MG/ML SYR/VIAL IV PRN (17:45)
[2018-10-03] MEDS ORDERED: ASPirin 81 mg TAB PO ONE (17:45)
[2018-10-03] MEDS ORDERED: IPRATROPIUM BROM 0.5 MG/2.5ML INH SOL NEB PRN (17:45)
[2018-10-03] MEDS: LORazepam 0.5 MG TAB PO PRN (18:34)
[2018-10-03] MEDS ORDERED: ACETAMINOPHEN 500 MG TAB PO PRN (19:30)
[2018-10-03] MEDS: MORPHINE SULF INJ 2 MG/ML SYRINGE 1ML IV PRN (20:09)
[2018-10-03] MEDS: ONDANSETRON HCL 4 MG/2 ML VIAL IV PRN (20:09)
--- NOTE | 2018-10-03 21:00 | NUR ---
Respiratory note:PT ASSESSED FOR PRN MED NEB TX. HR 69, RR 14, SPO2 98% ON R/A, BS CLEAR T/O. NO SIGNS OF ANY RESPIRATORY DISTRESS NOTED. ADVISED PT TO PLEASE CALL IF NEEDED.
[2018-10-03] MEDS: HYDROcodone-ACET 5/325MG TAB PO PRN (21:21)
[2018-10-03] MEDS: METOPROLOL TARTRATE 50 MG TAB PO SCH (21:52)
[2018-10-03] MEDS: ATORVASTATIN 20 MG TAB PO SCH (21:52)
[2018-10-04] MEDS: MORPHINE SULF INJ 2 MG/ML SYRINGE 1ML IV PRN ×8 (00:09→23:22)
[2018-10-04] MEDS ORDERED: LORA-654 PO (02:26)
[2018-10-04] MEDS ORDERED: HCTZ25T PO (02:26)
[2018-10-04] MEDS ORDERED: METO-462 PO (02:26)
[2018-10-04] MEDS: LORazepam 0.5 MG TAB PO PRN ×3 (03:01→20:51)
[2018-10-04] MEDS: ONDANSETRON HCL 4 MG/2 ML VIAL IV PRN ×2 (04:14→14:01)
[2018-10-04 05:39] LABS: Basophils # (auto) 0 uL; Basophils % (auto) 0.1 % (0.0-2.0); Eosinophils # (auto) 0 uL; Eosinophils % (auto) 0.1 % (0.0-7.0); Hematocrit 33.2 % (36.0-46.0); Hemoglobin 11.1 g/dL (12.2-16.2); Lymphocytes # (auto) 0.6 uL; Lymphocytes % (auto) 10.7 % (10.0-50.0); Mean Corpuscular Hemoglobin 29.7 pg (28.0-32.0); Mean Corpuscular Hgb Conc. 33.4 g/dL (32.0-36.0); Monocytes # (auto) 0.8 uL; Monocytes % (auto) 15.2 % (0.0-12.0); Neutrophils # (auto) 4.1 uL; Neutrophils % (auto) 73.9 % (37.0-80.0); Nucleated Red Blood Cells % 0.1 %; Platelet Count (auto) 172 10^3/uL (140-450); Red Blood Cells 3.73 10^6/uL (4.0-5.20); White Blood Cell 5.5 10^3/uL (4.4-10.8)
[2018-10-04] MEDS: HYDROcodone-ACET 5/325MG TAB PO PRN ×2 (05:56→09:24)
[2018-10-04 06:08] LABS: % Iron Saturation 6.6 % (15-50)
[2018-10-04 06:17] LABS: BUN/Creatinine Ratio 18.6
--- NOTE | 2018-10-04 06:57 | NUR ---
Respiratory note: PT ASSESSED FOR PRN MED NEB TX. HR 64, RR 16, SPO2 99% ON R/A, BS CLEAR T/O. NO SIGNS OF ANY RESPIRATORY DISTRESS NOTED. PT WAS NOTIFY TO HAVE RT PAGE FOR MN TX.
[2018-10-04] MEDS: LISINOPRIL 10 MG TAB PO SCH (09:19)
[2018-10-04] MEDS: FLUoxetine HCL 20 MG CAP PO SCH (09:19)
[2018-10-04] MEDS: ASPirin 81 mg TAB PO SCH (09:19)
[2018-10-04] MEDS: NITROGLYCERIN 0.4MG/HR TOPICAL PATCH TD SCH (09:20)
[2018-10-04] MEDS: NICOTINE 21MG/24 HR TOPICAL PATCH TD SCH (09:20)
[2018-10-04] MEDS ORDERED: METOPROLOL TARTRATE 25 MG TAB ONE ×2 (09:25→09:27)
[2018-10-04] MEDS: METOPROLOL TARTRATE 50 MG TAB PO SCH ×2 (09:31→22:03)
--- NOTE | 2018-10-04 11:00 | NUR ---
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 Patient oriented to primary RN, unit, room, bed, and unit policies regarding patient care and visiting hours. Patient now on continuous telemetry monitoring, tele box # [id number]. Patient weighed by bedscale and encouraged to call if they need something. All questions and concerns addressed, patient verbalized understanding.
[2018-10-04 13:00] VITALS: BP 137/78
[2018-10-04] MEDS ORDERED: PANTOPRAZOLE 40 MG/10 ML VIAL IV ONE (15:00)
[2018-10-04] MEDS ORDERED: LEVOFLOXACIN 750MG 150 ML IV ONE (15:00)
[2018-10-04] MEDS ORDERED: ALBUTEROL SULF 2.5 MG/0.5ML(0.5%) NEB SOLN NEB PRN (15:15)
[2018-10-04 15:41] VITALS: BP 137/78
[2018-10-04 16:37] LABS: Urine Bacteria NONE SEEN /hpf (None Seen); Urine Blood 2+ /uL (Negative); Urine Specific Gravity 1.011 (1.001-1.035); Urine WBC 3 /hpf (0 - 5)
[2018-10-04 17:00] VITALS: BP 130/94
--- NOTE | 2018-10-04 19:00 | NUR ---
Stress test Patient to have stress test done 10/05. Patient is aware nothing to eat or drink after midnight until after stress test.
--- NOTE | 2018-10-04 19:30 | NUR ---
Opening Shift Note Assumed care of patient, awake and alert x4. No S/S of distress/SOB noted. Patient complains of pain to her left hip (pain scale 8/10), will medicate patient as ordered. Instructed on plan of care and to call for assistance as needed. Bed is locked in lowest position, side rails x 2 are up, call light is within reach, and bed alarm is on.
--- NOTE | 2018-10-04 20:01 | NUR ---
Respiratory note: ASSESSED PATIENT FOR PRN TX, PATIENT STATES SHE IS FINE AND DOESN'T NEED A BREATHING TX. PATIENT IS AWAKE AND ALERT. BREATH SOUNDS ARE CLEAR, RR 18, SPO2 96%, HR 76. PATIENT IS AWARE TO HAVE RT PAGED IF BREATHING TX IS NEEDED.
[2018-10-04 21:44] VITALS: BP 132/86
[2018-10-04] MEDS: ATORVASTATIN 20 MG TAB PO SCH (22:03)
[2018-10-05] VITALS (7 sets, daily range): BP systolic 127–153; BP diastolic 77–86
[2018-10-05] MEDS: HYDROcodone-ACET 5/325MG TAB PO PRN ×2 (00:50→23:17)
[2018-10-05] MEDS: MORPHINE SULF INJ 2 MG/ML SYRINGE 1ML IV PRN ×7 (02:33→21:27)
[2018-10-05] MEDS: LORazepam 0.5 MG TAB PO PRN ×3 (04:53→20:42)
[2018-10-05 06:43] LABS: Basophils # (auto) 0 uL; Basophils % (auto) 0.2 % (0.0-2.0); Eosinophils # (auto) 0 uL; Eosinophils % (auto) 0.7 % (0.0-7.0); Hematocrit 33.6 % (36.0-46.0); Hemoglobin 11.1 g/dL (12.2-16.2); Lymphocytes # (auto) 1.8 uL; Lymphocytes % (auto) 31.4 % (10.0-50.0); Mean Corpuscular Hemoglobin 28.7 pg (28.0-32.0); Mean Corpuscular Hgb Conc. 33.1 g/dL (32.0-36.0); Mean Corpuscular Volume 86.6 fL (80.0-100.0); Monocytes # (auto) 0.7 uL; Monocytes % (auto) 12.2 % (0.0-12.0); Neutrophils # (auto) 3.2 uL; Neutrophils % (auto) 55.5 % (37.0-80.0); Platelet Count (auto) 168 10^3/uL (140-450); Red Blood Cells 3.88 10^6/uL (4.0-5.20); White Blood Cell 5.7 10^3/uL (4.4-10.8)
[2018-10-05 06:55] LABS: BUN/Creatinine Ratio 24.6; Calcium 7.7 mg/dL (8.5-10.1)
[2018-10-05] MEDS ORDERED: ADENOSINE 53 MG in GIVE UN-DILUTED 0 ML IV STA (08:34)
[2018-10-05] MEDS: LEVOFLOXACIN 750MG 150 ML IV SCH (09:02)
[2018-10-05] MEDS: ONDANSETRON HCL 4 MG/2 ML VIAL IV PRN (09:03)
[2018-10-05] MEDS: FLUoxetine HCL 20 MG CAP PO SCH (09:04)
[2018-10-05] MEDS: PANTOPRAZOLE 40 MG/10 ML VIAL IV SCH (09:04)
[2018-10-05] MEDS: ASPirin 81 mg TAB PO SCH (09:05)
[2018-10-05] MEDS: ENOXAPARIN SOD 40 MG/0.4 ML SYRINGE SC SCH (09:06)
[2018-10-05] MEDS: NITROGLYCERIN 0.4MG/HR TOPICAL PATCH TD SCH (09:07)
[2018-10-05] MEDS: METOPROLOL TARTRATE 50 MG TAB PO SCH ×2 (09:07→21:27)
[2018-10-05] MEDS: LISINOPRIL 10 MG TAB PO SCH (09:07)
[2018-10-05] MEDS: NICOTINE 21MG/24 HR TOPICAL PATCH TD SCH (09:09)
--- NOTE | 2018-10-05 09:45 | NUR ---
OFF UNIT PT TAKEN OFF UNIT VIA STRETCHER TO NM. NO DISTRESS NOTED AT TIME OF DEPARTURE.
--- NOTE | 2018-10-05 12:00 | NUR ---
Respiratory note: PRN TX CHECK. HR 64, RR 16, POX 100 ON RA, BREATH SOUNDS ARE CLEAR. NO SOB OR DISTRESS NOTED. PT WAS NOTIFY TO HAVE RT PAGE FOR MN TX.
--- NOTE | 2018-10-05 12:10 | NUR ---
RETURNED TO UNIT PT RETURNED TO UNIT FROM STRESS LAB. PT C/O LEFT HIP PAIN. WILL MEDICATE ACCORDING TO MD ORDER.
--- NOTE | 2018-10-05 17:34 | NUR ---
PAGED PT REQUESTING PRN SLEEP AID. ON-CALL HOSPITALIST PAGED. WAITING CONSTRUCTION EQUIPMENT OVERHAULER BACK.
--- NOTE | 2018-10-05 17:37 | NUR ---
BOAT HOP RETURNED PAGE EUSEBIA PEREZ RETURNED PAGE. ORDERS RECEIVED. ORDER READ BACK.
--- NOTE | 2018-10-05 19:01 | NUR ---
PT CARE ENDORSED PT CARE ENDORSED TO [place] TAP[facility].
--- NOTE | 2018-10-05 19:50 | NUR ---
Opening Shift Note Assumed care of patient, awake and alert x4. No S/S of distress/SOB noted. Patient complains of pain on her left hip/leg, pain scale 7/10, will medicate patient as ordered. Instructed on plan of care and to call for assistance as needed. Bed is locked in lowest position, side rails x 2 are up, call light is within reach, and bed alarm is on.
[2018-10-05] MEDS: ATORVASTATIN 20 MG TAB PO SCH (21:27)
--- NOTE | 2018-10-05 21:30 | NUR ---
Respiratory note: PT CURRENTLY ON ROOM AIR: HR 86, RR 18, SPO2 96% WITH CLEAR/DIM BS. PT SHOWS NO S/S OF ANY RESPIRATORY DISTRESS. INFORMED PT IF SOB TO CONTACT RESPIRATORY FOR BREATHING TX. WILL CONTINUE TO MONITOR.
[2018-10-05] MEDS: TEMAZEPAM 15 MG CAP PO PRN (22:42)
[2018-10-06] VITALS (7 sets, daily range): BP systolic 106–159; BP diastolic 77–97
[2018-10-06] MEDS: MORPHINE SULF INJ 2 MG/ML SYRINGE 1ML IV PRN ×8 (00:42→22:09)
[2018-10-06] MEDS: ONDANSETRON HCL 4 MG/2 ML VIAL IV PRN (04:31)
[2018-10-06] MEDS: LORazepam 0.5 MG TAB PO PRN ×3 (05:07→20:55)
[2018-10-06] MEDS: LEVOFLOXACIN 750MG 150 ML IV SCH (09:58)
[2018-10-06] MEDS: ENOXAPARIN SOD 40 MG/0.4 ML SYRINGE SC SCH (09:58)
[2018-10-06] MEDS: PANTOPRAZOLE 40 MG/10 ML VIAL IV SCH (09:58)
[2018-10-06] MEDS: FLUoxetine HCL 20 MG CAP PO SCH (09:59)
[2018-10-06] MEDS: ASPirin 81 mg TAB PO SCH (09:59)
[2018-10-06] MEDS: NICOTINE 21MG/24 HR TOPICAL PATCH TD SCH (09:59)
[2018-10-06] MEDS: NITROGLYCERIN 0.4MG/HR TOPICAL PATCH TD SCH (10:00)
[2018-10-06] MEDS: METOPROLOL TARTRATE 50 MG TAB PO SCH ×2 (10:06→22:00)
[2018-10-06] MEDS: LISINOPRIL 10 MG TAB PO SCH (10:06)
[2018-10-06] MEDS ORDERED: FLUO-126 PO (12:22)
--- NOTE | 2018-10-06 13:40 | NUR ---
PATIENT TAKEN DOWN TO TIRE ADJUSTER.
[2018-10-06] MEDS ORDERED: IODIXANOL 320MG/ML 100ML BTL IV ONE (14:34)
[2018-10-06] MEDS ORDERED: LIDOCAINE 2%HCL (LOCAL ANESTH.) INJ 20ML MDV ONE (14:36)
[2018-10-06] MEDS ORDERED: MIDAZOLAM HCL 1MG/1ML-2 ML VIAL ONE (14:50)
[2018-10-06] MEDS ORDERED: ANGIOMAX 250 MG VIAL IV ONE (14:50)
[2018-10-06] MEDS ORDERED: fentaNYL CITRATE 100 MCG/2 ML VL ONE (14:50)
[2018-10-06] MEDS ORDERED: SODIUM CHL 0.9% 0 ML ONE (14:51)
--- NOTE | 2018-10-06 16:14 | NUR ---
PATIENT RETURNED FROM DRUG CLERK. ALERT AND ORIENTED NO SIGNS AND SYMPTOMS OF DISTRESS.
--- NOTE | 2018-10-06 16:38 | NUR ---
PATIENT STATES SHE TAKES PROZAC 60 MG A DAY, I SPOKE TO DR PONCE AND NEW ORDERS RECEIVED AND PLACED.
[2018-10-06] MEDS: CARISOPRODOL 350 MG TAB PO PRN (17:51)
--- NOTE | 2018-10-06 19:15 | NUR ---
Respiratory note: ASSESSED PT FOR PRN MED NEB AT THIS TIME, PT DENIES SOB AT THIS TIME, NO RESP DISTRESS NOTED, BRYON TS INDICATED, PULSE OX 95% ON RA, HR 82, RR 20, BILATERAL BS CLEAR DECREASED.
[2018-10-06] MEDS: ATORVASTATIN 20 MG TAB PO SCH (22:09)
[2018-10-06] MEDS: TEMAZEPAM 15 MG CAP PO PRN (22:13)
[2018-10-07] MEDS: MORPHINE SULF INJ 2 MG/ML SYRINGE 1ML IV PRN ×6 (01:54→20:37)
--- NOTE | 2018-10-07 04:19 | NUR ---
Opening Shift Note Assumed care of patient, awake and alert. No S/S of distress/SOB. Patient is requesting pain medication. Instructed on POC and to call for assist PRN, will continue to monitor for changes Q1hr and PRN. Addendum: 10/07/18 at 0420 by Johanna Yung RN time 0300
[2018-10-07 05:00] VITALS: BP 122/82
[2018-10-07] MEDS: LORazepam 0.5 MG TAB PO PRN ×3 (05:13→20:44)
[2018-10-07 05:57] LABS: BUN/Creatinine Ratio 15.7; Calcium 7.9 mg/dL (8.5-10.1); Potassium 4.1 mmol/L (3.5-5.1)
[2018-10-07] MEDS: CARISOPRODOL 350 MG TAB PO PRN ×2 (06:07→17:52)
[2018-10-07 08:00] VITALS: BP 115/65
[2018-10-07 09:00] VITALS: BP 131/89
[2018-10-07] MEDS: LEVOFLOXACIN 750MG 150 ML IV SCH (09:26)
[2018-10-07] MEDS: PANTOPRAZOLE 40 MG/10 ML VIAL IV SCH (09:26)
[2018-10-07] MEDS: METOPROLOL TARTRATE 50 MG TAB PO SCH ×2 (09:27→21:30)
[2018-10-07] MEDS: ENOXAPARIN SOD 40 MG/0.4 ML SYRINGE SC SCH (09:27)
[2018-10-07] MEDS: FLUoxetine HCL 20 MG CAP PO SCH (09:27)
[2018-10-07] MEDS: ASPirin 81 mg TAB PO SCH (09:28)
[2018-10-07] MEDS: LISINOPRIL 10 MG TAB PO SCH (09:28)
[2018-10-07] MEDS: NICOTINE 21MG/24 HR TOPICAL PATCH TD SCH (09:29)
--- NOTE | 2018-10-07 10:20 | NUR ---
Dr. Terry at bedside discussing the POC with patient. Patient is pleased with his plan and ready to have surgery.
[2018-10-07 12:11] LABS: Prothrombin Time 10.7 sec (9.27-12.13)
--- NOTE | 2018-10-07 12:34 | NUR ---
NUTRITION ASSESSMENT NOTES Please refer to link notes of nutrition screen form filed under the intervention section of the plan of care for further details. Est. Needs: 1550 kcal to 1900 kcal (25-30 kcal/kgBW), 63 gms to 75 gms pro (1.0-1.2 gms/kgBW). Will continue to monitor pertinent labs and reassess nutrient need prn Thank you. Addendum: 10/07/18 at [address] Amended: Links added.
[2018-10-07 12:56] LABS: Urine Amorphous Crystal FEW /hpf (None Seen); Urine Bacteria NONE SEEN /hpf (None Seen); Urine Blood 2+ /uL (Negative); Urine Specific Gravity 1.013 (1.001-1.035); Urine WBC 7 /hpf (0 - 5)
[2018-10-07 13:00] VITALS: BP 123/79
[2018-10-07] MEDS: ONDANSETRON HCL 4 MG/2 ML VIAL IV PRN ×2 (14:22→20:38)
[2018-10-07 17:00] VITALS: BP 115/65
--- NOTE | 2018-10-07 19:50 | NUR ---
Opening shift Note Pt is resting in bed with eyes open and resp rate is even and unlabored. No s/s of any distress noted at this time. Pt is on a right tilt with left hip on a pillow. Left hip and thigh area with swelling. POC discussed with pt and pt verbalizes understanding. Bed is low, wheels are locked, and call light is with in reach. bed alarm is set for safety.
--- NOTE | 2018-10-07 20:30 | NUR ---
Respiratory note: ASSESSMENT FOR PRN MED NEB TX. PT PRESENTING NO RESPIRATORY DISTRESS AT THIS TIME. HR 95, SPO2 97% ON ROOM AIR, RR 17, BS CLEAR/DIMINISHED. PT AWARE TO HAVE RN PAGE RT IF MEB NEB TX IS NEEDED, WILL CONTINUE TO MONITOR.
[2018-10-07] MEDS: ATORVASTATIN 20 MG TAB PO SCH (21:29)
[2018-10-07 21:50] VITALS: BP 137/73
[2018-10-08] MEDS: MORPHINE SULF INJ 2 MG/ML SYRINGE 1ML IV PRN ×6 (00:09→23:46)
[2018-10-08] MEDS: ONDANSETRON HCL 4 MG/2 ML VIAL IV PRN (03:31)
[2018-10-08 04:44] VITALS: BP 118/67
[2018-10-08] MEDS: CLINDAMYCIN 600MG IV 50 ML IV ONE ×2 (06:37→07:00)
[2018-10-08 07:04] LABS: Basophils # (auto) 0 uL; Basophils % (auto) 0.3 % (0.0-2.0); Eosinophils # (auto) 0.2 uL; Eosinophils % (auto) 3.3 % (0.0-7.0); Hematocrit 34.9 % (36.0-46.0); Hemoglobin 11.7 g/dL (12.2-16.2); Lymphocytes % (auto) 20.7 % (10.0-50.0); Mean Corpuscular Hgb Conc. 33.5 g/dL (32.0-36.0); Mean Corpuscular Volume 86.6 fL (80.0-100.0); Monocytes # (auto) 0.8 uL; Monocytes % (auto) 15.5 % (0.0-12.0); Neutrophils % (auto) 60.2 % (37.0-80.0); Platelet Count (auto) 202 10^3/uL (140-450); Red Blood Cells 4.03 10^6/uL (4.0-5.20)
[2018-10-08] MEDS ORDERED: CLINDAMYCIN 600MG IV 50 ML IV ONE (07:08)
[2018-10-08 07:15] LABS: BUN/Creatinine Ratio 13.6; Calcium 8.1 mg/dL (8.5-10.1); Potassium 4.1 mmol/L (3.5-5.1)
--- NOTE | 2018-10-08 07:49 | NUR ---
PATIENT ROUNDS PATIENT OFF UNIT, PER REPORT PATIENT IS IN SURGERY.
[2018-10-08] MEDS ORDERED: fentaNYL CITRATE 100 MCG/2 ML VL ONE ×2 (07:58→09:14)
[2018-10-08] MEDS ORDERED: MIDAZOLAM HCL 1MG/1ML-2 ML VIAL ONE ×2 (07:58→08:44)
[2018-10-08] MEDS ORDERED: MEPERIDINE HCL (50 MG/ML) 1 ML VIAL ONE (07:58)
[2018-10-08] MEDS ORDERED: PROPOFOL 10 MG/ML 20 ML IV ONE (08:03)
[2018-10-08] MEDS ORDERED: DEXAMETHASONE SOD PHOS 10MG/1ML VIAL INJ ONE (08:03)
[2018-10-08] MEDS ORDERED: PHENYLEPHRINE HCL 10 MG/ML VL ONE (09:02)
[2018-10-08] MEDS ORDERED: ONDANSETRON HCL 4 MG/2 ML VIAL IV ONE (09:30)
[2018-10-08] MEDS ORDERED: MIDAZOLAM HCL 1MG/1ML-2 ML VIAL IV PRN (09:30)
[2018-10-08] MEDS ORDERED: LABETALOL HCL 5 MG/ML 4ML SYRINGE IV PRN (09:30)
[2018-10-08] MEDS ORDERED: MORPHINE SULFATE 4 MG/ML SYR/VIAL IV PRN (09:30)
[2018-10-08] MEDS ORDERED: ePHEDrine SULFATE 50 MG/ML AMP IV PRN (09:30)
[2018-10-08] MEDS ORDERED: KETOROLAC TROMETH 30 MG/ML 1ML VIAL IV ONE (09:30)
[2018-10-08] MEDS ORDERED: MORPHINE SULFATE 4 MG/ML SYR/VIAL IV ONE (10:00)
[2018-10-08] MEDS: ENOXAPARIN SOD 40 MG/0.4 ML SYRINGE SC SCH (10:00)
--- NOTE | 2018-10-08 10:15 | NUR ---
ROUNDS/MD DR PONCE IN TO SEE PATIENT, PATIENT STILL OFF UNIT.
[2018-10-08] MEDS: HYDROmorphone HCL 2 MG/ML VL IV PRN ×3 (10:50→11:23)
--- NOTE | 2018-10-08 11:29 | NUR ---
REPORT RECEIVED REPORT FROM OR, WAITING FOR PATIENT ARRIVAL.
--- NOTE | 2018-10-08 11:40 | NUR ---
PATIENT BACK ON UNIT PATIENT SITTING IN BED, PATIENT STATED SHE WANT HER ATIVAN AND PAIN MEDICATION. PATIENT JUST MEDICATED IN PACU BY FEEDER WORKER POWER UNIT OPERATOR WITH DILAUDID AT 11:23, PATIENT VERBALIZED UNDERSTANDING AND STATED SHE WILL WAIT FOR THE PAIN MEDICATION. WILL CONTINUE TO MONITOR AND INITIATE PLAN OF CARE. BED IN LOWEST POSITION, SIDE RAILS UP X2, CALL LIGHT WITHIN REACH.
[2018-10-08] MEDS: PANTOPRAZOLE 40 MG/10 ML VIAL IV SCH (12:29)
[2018-10-08] MEDS: LEVOFLOXACIN 750MG 150 ML IV SCH (12:29)
[2018-10-08] MEDS: NICOTINE 21MG/24 HR TOPICAL PATCH TD SCH (12:29)
[2018-10-08] MEDS: FLUoxetine HCL 20 MG CAP PO SCH (12:30)
[2018-10-08] MEDS: ASPirin 81 mg TAB PO SCH (12:30)
[2018-10-08] MEDS: LORazepam 0.5 MG TAB PO PRN ×2 (12:30→20:49)
[2018-10-08] MEDS: LISINOPRIL 10 MG TAB PO SCH (12:31)
[2018-10-08] MEDS: METOPROLOL TARTRATE 50 MG TAB PO SCH ×2 (12:31→22:28)
--- NOTE | 2018-10-08 12:46 | NUR ---
DR PONCE IN TO SEE PATIENT
[2018-10-08 13:00] VITALS: BP 118/77
[2018-10-08] MEDS: CARISOPRODOL 350 MG TAB PO PRN ×2 (13:00→23:47)
--- NOTE | 2018-10-08 15:00 | NUR ---
Respiratory note: ASSESSMENT FOR PRN MED NEB TX. PT PRESENTING NO RESPIRATORY DISTRESS AT THIS TIME. HR 80 SPO2 94% ON ROOM AIR, RR 16, BS CLEAR T/O. TX NOT INDICATED AT THIS TIME.
--- NOTE | 2018-10-08 15:08 | NUR ---
ROUNDS PATIENT RESTING IN BED, NO DISTRESS NOTED, RR EQUAL AND NONLABORED. BED IN LOWEST POSITION, SIDE RAILS UP X2, HOB 45*, CALL LIGHT WITHIN REACH.
--- NOTE | 2018-10-08 15:19 | NUR ---
assessment Patient is a 57 year old female who is alert and oriented. Prior to admission patient lived home with her and functioned with his assistance. Per patient she fell at home and fractured her hip. Patient informed me she would like SNF on discharge. Patient has a fww for home use. I informed patient she has a right to speak to a psych social worker regarding all care. I informed patient she has a right to participate in any and all discharge planning. Patient is aware of visiting hours on the hospital floor. I informed patient she has a right to privacy. Patient does not have a POA and advanced directive. I have offered patient information on POA and advanced directives. I informed the patient the advantages and benefits of having an Advanced Directive. Patient verbalized understanding and agreed to discharge plan. Per consult SNF placement. MD order has been sent to [facility] and Dereck Atkinson. Per Lucie at [facility] she has accepted patient on discharge. Lucie [phone] will call back with room numberRobert Jayne casey saw operator is getting auth for [facility] and transport. Addendum: 10/08/18 at 1526 by Bree CONWAY Amended: Links added.
--- NOTE | 2018-10-08 15:31 | NUR ---
I faxed SNF order to [facility] and [facility]. I called [facility] and left message for merchandise planner Ephraim asking for authorization for [facility] and for transportation-awaiting return call.
--- NOTE | 2018-10-08 16:40 | NUR ---
I spoke with [facility] discharge nurse Ephraim-she let me know that SNF authorization can not be given until patient has been evaluated by PT.
[2018-10-08 17:00] VITALS: BP 101/61
--- NOTE | 2018-10-08 19:45 | NUR ---
Open Shift Note Assumed care pt, pt is resting in bed, awake and alert. Resp. rate even and unlabored. No s/s of any distress noted at this time. POC discussed with pt and pt verbalizes understanding. Bed is low, wheels are locked, and call light within reach. Pt bed alarm set for safety.
[2018-10-08 22:00] VITALS: BP 107/63
[2018-10-08] MEDS: ATORVASTATIN 20 MG TAB PO SCH (22:29)
[2018-10-08] MEDS: HYDROcodone-ACET 5/325MG TAB PO PRN (22:30)
[2018-10-08] MEDS: TEMAZEPAM 15 MG CAP PO PRN (22:30)
[2018-10-08] MEDS: CLINDAMYCIN 600MG IV 50 ML IV SCH (22:32)
[2018-10-09] MEDS: ONDANSETRON HCL 4 MG/2 ML VIAL IV PRN (02:55)
[2018-10-09] MEDS: MORPHINE SULF INJ 2 MG/ML SYRINGE 1ML IV PRN ×7 (02:56→21:44)
[2018-10-09] MEDS: LORazepam 0.5 MG TAB PO PRN ×3 (04:38→20:47)
[2018-10-09] MEDS: HYDROcodone-ACET 5/325MG TAB PO PRN ×2 (04:38→19:36)
[2018-10-09 05:00] VITALS: BP 116/60
[2018-10-09 06:00] LABS: Basophils # (auto) 0 uL; Basophils % (auto) 0.1 % (0.0-2.0); Eosinophils # (auto) 0 uL; Eosinophils % (auto) 0.4 % (0.0-7.0); Hemoglobin 9.7 g/dL (12.2-16.2); Lymphocytes # (auto) 0.6 uL; Lymphocytes % (auto) 8.6 % (10.0-50.0); Mean Corpuscular Hemoglobin 29.4 pg (28.0-32.0); Mean Corpuscular Hgb Conc. 33.3 g/dL (32.0-36.0); Mean Corpuscular Volume 88.4 fL (80.0-100.0); Monocytes # (auto) 0.7 uL; Monocytes % (auto) 10.3 % (0.0-12.0); Neutrophils # (auto) 5.7 uL; Neutrophils % (auto) 80.6 % (37.0-80.0); Platelet Count (auto) 208 10^3/uL (140-450); Red Blood Cells 3.28 10^6/uL (4.0-5.20); Red Cell Distribution Width 13.9 % (11.8-14.3); White Blood Cell 7.1 10^3/uL (4.4-10.8)
[2018-10-09 06:20] LABS: Potassium 3.9 mmol/L (3.5-5.1)
[2018-10-09] MEDS: CLINDAMYCIN 600MG IV 50 ML IV SCH ×2 (06:21→13:35)
[2018-10-09 06:28] LABS: Calcium 7.8 mg/dL (8.5-10.1); Magnesium 2.1 mg/dL (1.6-2.6)
--- NOTE | 2018-10-09 07:30 | NUR ---
Opening Shift Note Assumed care of patient, awake and alert. No S/S of distress/SOB or pain. Instructed on POC and to call for assist PRN, will continue to monitor for changes Q1hr and PRN. Bed locked in lowest position with two side rails up and call light in reach.
[2018-10-09 08:30] VITALS: BP 94/56
[2018-10-09] MEDS: PANTOPRAZOLE 40 MG/10 ML VIAL IV SCH (09:46)
[2018-10-09] MEDS: LEVOFLOXACIN 750MG 150 ML IV SCH (09:48)
[2018-10-09] MEDS: ENOXAPARIN SOD 40 MG/0.4 ML SYRINGE SC SCH (09:48)
[2018-10-09] MEDS: NICOTINE 21MG/24 HR TOPICAL PATCH TD SCH (09:48)
[2018-10-09] MEDS: ASPirin 81 mg TAB PO SCH (09:50)
[2018-10-09] MEDS: METOPROLOL TARTRATE 50 MG TAB PO SCH ×2 (09:50→22:00)
[2018-10-09] MEDS: FLUoxetine HCL 20 MG CAP PO SCH (09:50)
[2018-10-09] MEDS: LISINOPRIL 10 MG TAB PO SCH (09:51)
[2018-10-09 12:30] VITALS: BP 100/61
--- NOTE | 2018-10-09 12:44 | NUR ---
DR PONCE ROUNDING ORDERS RECEIVED.
[2018-10-09] MEDS: SODIUM CHLORIDE 0.9% 1,000 ML IV SCH (13:35)
[2018-10-09 17:18] VITALS: BP 101/67
--- NOTE | 2018-10-09 19:00 | NUR ---
OPENING SHIFT NOTE Received report from day shift RN. Patient is A&O X's 4 with no s/s of distress noted. Patient is c/o severe 9/10 left hip pain at this time. Will medicate as ordered. Educated patient on POC/use of call light/ pain management. Patient verbalized understanding. Bed is in lowest/locked position with side rails up X's 2.
--- NOTE | 2018-10-09 19:26 | NUR ---
PT ASSESSED FOR PRN MED NEB TX. SPO2 97% ON RA, HR 94. PT DENIES ANY RESPIRATORY DISTRESS. NO TX INDICATED. PT IS AWARE TO HAVE RT PAGED IF TX NEEDED.
[2018-10-09 22:00] VITALS: BP 113/63
[2018-10-09] MEDS: ATORVASTATIN 20 MG TAB PO SCH (22:35)
[2018-10-09] MEDS: DOCUSATE SOD 100 MG CAP PO SCH (22:35)
[2018-10-09] MEDS: TEMAZEPAM 15 MG CAP PO PRN (22:37)
[2018-10-10] MEDS: MORPHINE SULF INJ 2 MG/ML SYRINGE 1ML IV PRN ×7 (00:52→21:38)
[2018-10-10] MEDS: HYDROcodone-ACET 5/325MG TAB PO PRN ×3 (02:46→16:38)
[2018-10-10] MEDS: LORazepam 0.5 MG TAB PO PRN ×3 (04:51→22:46)
[2018-10-10 05:00] VITALS: BP 118/66
[2018-10-10] MEDS: CARISOPRODOL 350 MG TAB PO PRN ×2 (05:50→17:54)
[2018-10-10] MEDS: SODIUM CHLORIDE 0.9% 1,000 ML IV SCH ×2 (06:10→11:30)
[2018-10-10 06:40] LABS: Hematocrit 27.7 % (36.0-46.0); Hemoglobin 9.3 g/dL (12.2-16.2)
[2018-10-10 06:47] LABS: BUN/Creatinine Ratio 10.2; Calcium 7.5 mg/dL (8.5-10.1); Potassium 3.9 mmol/L (3.5-5.1)
--- NOTE | 2018-10-10 06:54 | NUR ---
PRN MN TX NOT INDICATED AT THIS TIME. PT IS AWAKE, ALERT AND ORIENTED. PT ON RA, 97% O2 SATS, HR 88 BPM, RR18, BS ARE CLEAR TO AUSCULTATION, RESPIRATION IS EVEN AND NONLABORED. SKIN IS DRY AND WARM TO THE TOUCH. PT DENIES SOB OR ANY OTHER RESPIRATORY DISTRESS. PT INSTRUCTED TO CALL IF MN TX IS INDICATED. PT VERBALIZED UNDERSTANDING.
--- NOTE | 2018-10-10 07:41 | NUR ---
OPENING PATIENT AWAKE IN BED, BED IN LOWEST POSITION, CALL LIGHT WITHIN REACH. NO DISTRESS NOTED AT THIS TIME. PATIENT REQUESTS TO HAVE THE TIMES OF ATIVAN, NORCO, AND MORPHINE ADMINISTRATION TO BE WRITTEN ON HER WHITE BOARD. WILL F/U WITH THAT. RBC 3.28 HGB 9.3 NEUT 80.6 SODIUM 126 BUN 5 CREA 1.49 UA: 2 + BLOOD, 1 + LEUKS PENDING TRANSFER TO [facility], PER NOC AWAITING PT EVAL TO BE COMPLETED FOR ACCEPTANCE/TRANSFER WILL F/U AND CHECK ALL NOTES
[2018-10-10 08:00] VITALS: BP 124/72
[2018-10-10] MEDS: NICOTINE 21MG/24 HR TOPICAL PATCH TD SCH (09:01)
[2018-10-10] MEDS: PANTOPRAZOLE 40 MG/10 ML VIAL IV SCH (09:01)
[2018-10-10] MEDS: ENOXAPARIN SOD 40 MG/0.4 ML SYRINGE SC SCH (09:01)
[2018-10-10] MEDS: FLUoxetine HCL 20 MG CAP PO SCH (09:02)
[2018-10-10] MEDS: ASPirin 81 mg TAB PO SCH (09:02)
[2018-10-10] MEDS: LEVOFLOXACIN 750MG 150 ML IV SCH (09:02)
[2018-10-10] MEDS: DOCUSATE SOD 100 MG CAP PO SCH ×2 (09:02→21:38)
[2018-10-10] MEDS: METOPROLOL TARTRATE 50 MG TAB PO SCH ×2 (09:14→21:45)
[2018-10-10] MEDS: LISINOPRIL 10 MG TAB PO SCH (09:14)
[2018-10-10 12:00] VITALS: BP 97/50
[2018-10-10] MEDS: ONDANSETRON HCL 4 MG/2 ML VIAL IV PRN (12:59)
--- NOTE | 2018-10-10 15:55 | NUR ---
L Hip Drsg changed as ordered by MD mcdermott
[2018-10-10 17:00] VITALS: BP 107/56
--- NOTE | 2018-10-10 19:10 | NUR ---
OPENING NOTE Received report from day shift RN. Patient is A&O X's 4 with no s/s of distress at this time. Patient is c/o left hip pain. Educated patient on pain medication and management and the next time medication can be given. Patient verbalized understanding. Educated patient on POC and to use call light when in need of any assistance. Bed is in lowest/locked position with side rails up X's 2. Will continue to monitor and round hourly/PRN.
[2018-10-10] MEDS: ATORVASTATIN 20 MG TAB PO SCH (21:38)
[2018-10-10] MEDS: TEMAZEPAM 15 MG CAP PO PRN (21:50)
[2018-10-10 22:00] VITALS: BP 120/60
[2018-10-11] MEDS: MORPHINE SULF INJ 2 MG/ML SYRINGE 1ML IV PRN ×7 (01:49→21:00)
[2018-10-11] MEDS: HYDROcodone-ACET 5/325MG TAB PO PRN ×3 (02:59→19:07)
[2018-10-11 06:00] VITALS: BP 128/73
--- NOTE | 2018-10-11 06:35 | NUR ---
PT ASSESSED FOR PRN HHN TX. PT IS ON ROOM AIR,SPO2 97%, HR 64, RR 15. NO S/S OF RESPIRATORY DISTRESS. PT ADVISED TO CALL RT IF SOB OCCURS. WILL CONTINUE TO MONITOR.
[2018-10-11 07:01] LABS: Hematocrit 27.7 % (36.0-46.0); Hemoglobin 9.4 g/dL (12.2-16.2)
[2018-10-11] MEDS: LORazepam 0.5 MG TAB PO PRN ×3 (07:03→23:37)
[2018-10-11 07:26] LABS: Calcium 8.1 mg/dL (8.5-10.1)
[2018-10-11 07:29] LABS: BUN/Creatinine Ratio 9.6
[2018-10-11] MEDS: SODIUM CHLORIDE 0.9% 1,000 ML IV SCH (07:30)
[2018-10-11] MEDS: CARISOPRODOL 350 MG TAB PO PRN (07:57)
--- NOTE | 2018-10-11 08:00 | NUR ---
RECEIVED PT RESTING IN BED, CALL LIGHT WITHIN REACH, PT REPORTS PAIN AND REQUESTING MUSCLE RELAXER, BAZAN DRAINING TO GRAVITY, WILL CONTINUE TO MONITOR PT.
[2018-10-11 08:44] VITALS: BP 120/75
--- NOTE | 2018-10-11 09:02 | NUR ---
I faxed PT notes to [facility], asking for authorization for SNF and for transportation.
[2018-10-11] MEDS: PANTOPRAZOLE 40 MG/10 ML VIAL IV SCH (09:25)
[2018-10-11] MEDS: LEVOFLOXACIN 750MG 150 ML IV SCH (09:26)
[2018-10-11] MEDS: ASPirin 81 mg TAB PO SCH (09:26)
[2018-10-11] MEDS: DOCUSATE SOD 100 MG CAP PO SCH ×2 (09:27→21:02)
[2018-10-11] MEDS: FLUoxetine HCL 20 MG CAP PO SCH (09:27)
[2018-10-11] MEDS: NICOTINE 21MG/24 HR TOPICAL PATCH TD SCH (09:28)
[2018-10-11] MEDS ORDERED: ENOXAPARIN SOD 40 MG/0.4 ML SYRINGE SC SCH (10:00)
[2018-10-11] MEDS: METOPROLOL TARTRATE 50 MG TAB PO SCH ×2 (10:00→22:00)
[2018-10-11] MEDS: LISINOPRIL 10 MG TAB PO SCH (10:00)
--- NOTE | 2018-10-11 11:00 | NUR ---
DR. PONCE AT BED SIDE TO SEE PT, DOCTOR DISCUSSED THE PLAN OF CARE WITH PT, ORDERS RECEIVED TO Alisha/Sarahy BAZAN.
--- NOTE | 2018-10-11 11:11 | NUR ---
Caro catheter dc'd Order to discontinue caro catheter. Caro dc'd with clean technique following deflation of balloon. Patient tolerated well with no complaints of pain. Continue care.
--- NOTE | 2018-10-11 11:41 | NUR ---
I spoke with [facility] special events planner Tri, the authorization number for SNF is [id number], and the authorization number for transportation is [id number].
[2018-10-11 12:26] VITALS: BP 113/67
[2018-10-11] MEDS ORDERED: PANT40T PO (12:28)
[2018-10-11] MEDS ORDERED: LACTULOSE 20Gm/30ML SOLN PO ONE (13:00)
[2018-10-11] MEDS: ONDANSETRON HCL 4 MG/2 ML VIAL IV PRN (13:14)
--- NOTE | 2018-10-11 14:06 | NUR ---
re-assessment Patient is now discharged. Per Lucie at [facility] patient will go to [address] Chambers is the accepting MD. [facility] will be set for 4pm post discharge. Patient has been notified as well as Megan TAPIA. patient verbalized understanding and agreed to discharge plan to SNF. Addendum: 10/11/18 at 1411 by Bree CONWAY Amended: Links added.
[2018-10-11] MEDS ORDERED: APIX2.5T PO (14:55)
--- NOTE | 2018-10-11 15:27 | NUR ---
CALLED [facility] AT [phone], REPORT GIVEN TO MEE / REGINA.
--- NOTE | 2018-10-11 15:30 | NUR ---
PAIN PT C/O LEFT HIP PAIN, PT MEDICATED WITH MORPHINE 2MG IV, VS STABLE 113/676,CURRENT TELE READING SR 96, ON RA, NO C/O SOB, INSTRUCTED TO CALL FOR FURTHER ASSISTANCE, PT VERBALIZED UNDERSTANDING, CALL LIGHT WITHIN REACH
[2018-10-11 15:31] VITALS: BP 113/67
--- NOTE | 2018-10-11 16:49 | NUR ---
PT REPORTED HEARING A POP ON HER LEFT HIP, PHYSICAL THERAPY AND CHARGE NURSE ASSESS PT, PAGED DR. PONCE TO ASK IF A LT HIP XRAY CAN BE ORDER, AWAITING CALL BACK. DR. HANDLEY A UNIT, DR. HANDLEY OK THE LT HIP X-RAY.
--- NOTE | 2018-10-11 16:57 | NUR ---
RECEIVED CALL BACK FROM DR. PONCE, DOCTOR INFORMED REGARDING PT REQUESTING AN EXTRA DOSE OF MORPHINE AND THAT PT REPORTED A POP ON HER LEFT HIP, PT IS IN A LOT OF PAIN, ORDERS RECEIVED FOR A STAT LT HIP X-RAY AN MORPHINE 1 MG IV X1 AFTER 2 HRS FROM LAST DOSE, IF LT HIP XRAY OK TO D/C TO SNF.
[2018-10-11 17:20] VITALS: BP 141/93
[2018-10-11] MEDS ORDERED: MORPHINE SULFATE 4 MG/ML SYR/VIAL IV ONE (17:45)
--- NOTE | 2018-10-11 18:47 | NUR ---
DR. RIDLEY / ORTHO AT BED SIDE TO SEE PT, DOCTOR INFORMED PT REPORT HEARING A POP AT HER LT HIP SURGICAL SITE, LT HIP X-RAY RESULTS INFORMED, PER DR. HESTER, HOLD THE D/C TO SNF, PT NEEDS TO STAY ON BED REST FOR TONIGHT, USE A BED MERAZ, PT WILL BE RE-ASSESS TOMORROW.
--- NOTE | 2018-10-11 19:10 | NUR ---
OPENING NOTE Received report from day shift RN. Patient is A&O X's 4 with no s/s of distress at this time. Patient is c/o left hip pain 05/19. Educated patient on pain management and pain medication. Patient verbalized understanding. Educated patient on POC/to use call light when in need of assistance/to use bedpan only and she is on bedrest and informed her not to get up. Patient verbalized understanding. Patient was complaining of headache at this time. A cool washcloth was given for her head at this time. Bed is in lowest/locked position with side rails up X's 2. Will continue to monitor and round hourly/PRN.
[2018-10-11] MEDS: TEMAZEPAM 15 MG CAP PO PRN (21:00)
[2018-10-11] MEDS: APIXABAN 2.5 MG TAB PO SCH (21:01)
[2018-10-11 22:00] VITALS: BP 107/76
--- NOTE | 2018-10-11 23:44 | NUR ---
Respiratory note: PT ASSESSED FOR PRN MED NEB TX, NO TX DESIRED NOR INDICATED. PT DENIES SOB/DIFF BREATHING, NO DISTRESS NOTED. HR 82 RR 16 SPO2 96% ON RA BREATH SOUNDS ARE CLEAR. PT AND RN AWARE TO HAVE RT PAGED IF NEEDED.
[2018-10-12] MEDS: MORPHINE SULF INJ 2 MG/ML SYRINGE 1ML IV PRN ×3 (00:06→07:57)
[2018-10-12] MEDS: CARISOPRODOL 350 MG TAB PO PRN (01:52)
[2018-10-12 05:27] VITALS: BP 114/70
[2018-10-12] MEDS: HYDROcodone-ACET 5/325MG TAB PO PRN (06:07)
--- NOTE | 2018-10-12 07:44 | NUR ---
PT ASSESSED FOR PRN HHN TX. PT IS ON ROOM AIR, SPO2 95%, HR 94, RR 16. NO S/S OF RESPIRATORY DISTRESS. LUNGS ARE CLEAR T/O ANTERIOR LOBES. PT AWARE TO HAVE RT PAGED IF BREATHING TX INDICATED.
[2018-10-12] MEDS: LORazepam 0.5 MG TAB PO PRN (07:58)
[2018-10-12 09:00] VITALS: BP 105/77
[2018-10-12] MEDS: APIXABAN 2.5 MG TAB PO SCH (09:17)
[2018-10-12] MEDS: NICOTINE 21MG/24 HR TOPICAL PATCH TD SCH (09:17)
[2018-10-12] MEDS: METOPROLOL TARTRATE 50 MG TAB PO SCH (09:17)
[2018-10-12] MEDS: FLUoxetine HCL 20 MG CAP PO SCH (09:18)
[2018-10-12] MEDS: DOCUSATE SOD 100 MG CAP PO SCH (09:18)
--- NOTE | 2018-10-12 09:55 | NUR ---
provider dr bell at bedside discussing plan of care with pt, to change pain medication orders per md
[2018-10-12 09:56] VITALS: BP 118/74
[2018-10-12] MEDS ORDERED: PANTOPRAZOLE 40 MG TAB PO SCH (10:00)
--- NOTE | 2018-10-12 10:00 | NUR ---
provider dr mcdermott at bedside, to transfer pt to SNF as previously ordered
--- NOTE | 2018-10-12 11:25 | NUR ---
iv removed cath intact site benign
--- NOTE | 2018-10-12 11:27 | NUR ---
family contact daughter sumit notified of transfer
--- NOTE | 2018-10-12 11:30 | NUR ---
REPORT GIVEN TO ED AT [facility] UPDATED ON PLACE AND PATIENT STATUS
--- NOTE | 2018-10-12 11:35 | NUR ---
TRANSFER TO [facility] WITH WITH [facility] WITH ALL PERSONAL BELONGINGS AND DISCHARGE PAPERWORK
== END 2018-10-12 12:17 | DRG 950 ==
LOC: ER 10:57 → EDBD 10:57 → MERGE 14:39 → TELE 14:39 → TELE-CENTR 10-04 11:02
PROVIDERS: ADMIT Nurse Practitioner Acute Care; ATTEND Internal Medicine
PROC: 0SRS0JZ Replacement of Left Hip Joint, Femoral Surface with Synthetic Substitute, Open Approach (ICD-10-PCS; 2018-10-08)
PROC: 0MBM0ZZ Excision of Left Hip Bursa and Ligament, Open Approach (ICD-10-PCS; 2018-10-08)
PROC: B2111ZZ Fluoroscopy of Multiple Coronary Arteries using Low Osmolar Contrast (ICD-10-PCS; principal; 2018-10-12)
PROC: 4A023N7 Measurement of Cardiac Sampling and Pressure, Left Heart, Percutaneous Approach (ICD-10-PCS; 2018-10-12)
PROC: B2151ZZ Fluoroscopy of Left Heart using Low Osmolar Contrast (ICD-10-PCS; 2018-10-12)
DX: R07.9 Chest pain, unspecified (principal); J18.9 Pneumonia, unspecified organism; M84.452A Pathological fracture, left femur, initial encounter for fracture; E44.1 Mild protein-calorie malnutrition; E87.1 Hypo-osmolality and hyponatremia; J44.0 Chronic obstructive pulmonary disease with (acute) lower respiratory infection; I10 Essential (primary) hypertension; I25.10 Atherosclerotic heart disease of native coronary artery without angina pectoris; D64.9 Anemia, unspecified; I73.9 Peripheral vascular disease, unspecified; W18.39XA Other fall on same level, initial encounter; F41.9 Anxiety disorder, unspecified; M81.0 Age-related osteoporosis without current pathological fracture; F17.210 Nicotine dependence, cigarettes, uncomplicated; M70.72 Other bursitis of hip, left hip; Z86.73 Personal history of transient ischemic attack (TIA), and cerebral infarction without residual deficits; Z90.710 Acquired absence of both cervix and uterus; Z85.43 Personal history of malignant neoplasm of ovary; I25.2 Old myocardial infarction; Z87.11 Personal history of peptic ulcer disease; Z68.25 Body mass index [BMI] 25.0-25.9, adult; Y93.89 Activity, other specified; Y92.89 Other specified places as the place of occurrence of the external cause
CPT/HCPCS: 36415; 51702; 71045; 73501; 73502; 78452; 80048; 80053; 80061; 81001; 83540; 83550; 83735; 83880; 84443; 84484; 85014; 85018; 85025; 85610; 86850; 86900; 86901; 87040; 87086; 93005; 93017; 93306; 93458; 96365; 96372; 96375; 97110; 97163; 97530; 99152; A6257; C1776; C9113; G0378; J0153; J0696; J1100; J1885; J1956; J2250; J2405; J2704; J3490; Q0162; Q9967

== ENCOUNTER 2018-12-24 15:42 | Inpatient (IN) | payer MEDICAID | END 2018-12-31 13:53 | disposition home health service (06) | LOC: WEST WING 12-29 18:00 → ER 15:42 → TELE-WESTW 12-25 15:38 → TELE 18:27 → TELE-WESTW 20:36 | DX: I13.0 Hypertensive heart and chronic kidney disease with heart failure and stage 1 through stage 4 chronic kidney disease, or unspecified chronic kidney disease (principal); J96.00 Acute respiratory failure, unspecified whether with hypoxia or hypercapnia; E43 Unspecified severe protein-calorie malnutrition; J18.9 Pneumonia, unspecified organism; I50.33 Acute on chronic diastolic (congestive) heart failure; Z86.73 Personal history of transient ischemic attack (TIA), and cerebral infarction without residual deficits; E87.1 Hypo-osmolality and hyponatremia; F41.9 Anxiety disorder, unspecified; E03.9 Hypothyroidism, unspecified; I25.2 Old myocardial infarction; N18.9 Chronic kidney disease, unspecified; K27.9 Peptic ulcer, site unspecified, unspecified as acute or chronic, without hemorrhage or perforation; I25.10 Atherosclerotic heart disease of native coronary artery without angina pectoris; Z85.43 Personal history of malignant neoplasm of ovary; R78.81 Bacteremia ==